=== PATIENT | female | born 1935 | race Caucasian/White ===

== ENCOUNTER 2017-01-04 14:16 | Inpatient (IN) | payer MEDICARE, BC ==
[~2017-01-04] VITALS: Ht 154.9 cm; Wt 54.7 kg
[~2017-01-04 14:16] MED LIST: ADVA100A INH; ALUM5LIQ PO; BISA10SU PR; CART120C2 PO; CENTTAB16 PO; COUM10TA PO; DIPH50TA PO; DOCU1CAP39 PO; EMBREL INJ; FLEX5TAB PO; FOLI1TAB PO; MAGN30S PO; METH2.5 PO; METO50TA PO; OMEG12002 PO; PERC5TAB12 PO; RAMI2.5C29 PO; RANI150T PO; SIMV20TA PO; TOLT1TAB PO; VITA500015 PO; WARF5TAB PO
[2017-01-23] MEDS ORDERED: METOPROLOL TARTRATE 25 MG TAB PO PRN (07:00)
[2017-01-23] MEDS: SODIUM CHLORID 0.9% 500 ML IV SCH ×2 (07:00→14:04)
[2017-01-23] MEDS: POVIDONE IODINE 7.5% SCRUB 118 ML BOTTLE TOP SCH ×2 (07:00→14:04)
[2017-01-23] MEDS ORDERED: VANCOMYCIN 1000 MG/NS 250 ML (for <70 kg) IV SCH ×2 (07:00)
[2017-01-23] MEDS ORDERED: DEXAMETHASONE SOD PHOS 4 MG/ML VIAL IV SCH (07:00)
[2017-01-23] MEDS ORDERED: INSULIN HUMAN REGULAR 1,000 UNITS/10 ML VIAL SQ PRN (07:00)
--- NOTE | 2017-01-23 07:01 | HHI.DCPOC ---
Discharge Care Plan Diagnosis: (1) Status post total knee replacement, right (2) Primary localized osteoarthrosis, lower leg Your Health Problems Are: Difficulty with ADL Goals to Promote Your Health * To prevent worsening of your condition and complications * To maintain your health at the optimal level Directions to Meet Your Goals Take your medications as prescribed Follow your dietary instruction Follow activity as directed Keep your appointments as scheduled Take your immunizations and boosters as scheduled If your symptoms worsen call your PCP, if no PCP go to Urgent Care Center or Emergency Room Smoking is Dangerous to Your Health. Avoid second hand smoke Call the 24-hour hour crisis hotline for domestic abuse at Calin Parker Jan 23, 2017 07:01
--- NOTE | 2017-01-23 07:01 | HHI.FF ---
Face to Face Verification Diagnosis: (1) Status post total knee replacement, right (2) Primary localized osteoarthrosis, lower leg Physical Therapy Gait training, Transfer training, bed to chair Knee: Total knee Right LE Weight Bearing: WB as tolerated Right LE Range of Motion: Active ROM Nursing Nursing: Cristina teaching, Dressing changes Dressing Changes: Daily dressing change I have seen patient Narcisa Graham on 01/23/17. My clinical findings support the need for the requested home health care services because: Limited ability to care for self High risk of falls I certify that my clinical findings support that this patient is homebound because: Post-op weakness Unsteady gait/balance Calin Parker Jan 23, 2017 07:01
[2017-01-23] MEDS ORDERED: CPMMACHINE (07:03)
[2017-01-23] MEDS ORDERED: COMMODE 3-IN-11 MIS (07:03)
[2017-01-23] MEDS ORDERED: WALKER WHEELS/F1 MIS (07:03)
[2017-01-23] MEDS ORDERED: DILT120C9 PO (07:14)
[2017-01-23] MEDS ORDERED: LEVO25TA4 PO (07:14)
[2017-01-23] MEDS ORDERED: COUM5TAB PO (07:14)
[2017-01-23] MEDS ORDERED: SIMV10TA PO (07:14)
[2017-01-23] MEDS ORDERED: OMEG1CAP50 PO (07:14)
[2017-01-23] MEDS ORDERED: ADVA100A INH (07:14)
[2017-01-23] MEDS ORDERED: TOLT1TAB16 PO (07:14)
[2017-01-23] MEDS ORDERED: METH2.5T PO (07:14)
[2017-01-23] MEDS ORDERED: FOLI5CAP PO (07:14)
[2017-01-23] MEDS ORDERED: VITA2000 PO (07:14)
[2017-01-23] MEDS ORDERED: METO-309 PO (07:14)
[2017-01-23 07:15] VITALS: BP 125/65; PULSE 60; RESP 16; TEMP 97.7; O2SAT 98
[2017-01-23] MEDS: LACTATED RINGER'S 1000 ML IV SCH ×2 (07:20→14:03)
[2017-01-23] MEDS ORDERED: ENOX40P SQ ×2 (07:28→12:15)
[2017-01-23] MEDS ORDERED: DEXAMETHASONE SOD PHOS 20 MG/5 ML VIAL ONE (07:42)
[2017-01-23] MEDS ORDERED: GENTAMICIN SULFATE 80 MG/2 ML VIAL ONE (08:17)
[2017-01-23] MEDS: ceFAZolin 2 GM PREMIX 50 ML IV SCH ×2 (08:50→14:04)
[2017-01-23] MEDS ORDERED: FAMOTIDINE 20 MG/2 ML VIAL ONE (09:17)
[2017-01-23] MEDS ORDERED: MIDAZOLAM HCL 5 MG/5 ML VIAL ONE (09:17)
[2017-01-23] MEDS: TRANEXAMIC ACID IV SCH ×2 (10:00→10:29)
[2017-01-23] MEDS: SODIUM CHLORIDE 0.9% IV SCH ×2 (10:00→10:29)
[2017-01-23] MEDS: ROPIVACAINE PERI-ARTICULAR INJECTION. PERIART SCH ×10 (10:00→10:57)
[2017-01-23] MEDS ORDERED: PROPOFOL 200 MG/20 ML AMP IV ONE (12:00)
[2017-01-23] MEDS ORDERED: ePHEDrine/NS 25 MG/5 ML SYR IV ONE (12:00)
[2017-01-23] MEDS ORDERED: MORPHINE SULFATE 4 MG/ML INJ IV PUSH PRN (12:15)
[2017-01-23] MEDS ORDERED: NALOXONE HCL 0.4 MG/ML AMP IV PRN (12:15)
[2017-01-23] MEDS ORDERED: diphenhydrAMINE HCL 50 MG/ML VIAL IV PRN (12:15)
[2017-01-23] MEDS ORDERED: ONDANSETRON HCL 4 MG/2 ML VIAL IVP PRN (12:15)
[2017-01-23] MEDS ORDERED: ACETAMINOPHEN/HYDROcodone 325 MG/5 MG TAB PO PRN (12:15)
[2017-01-23] MEDS ORDERED: BISACODYL 10 MG SUPP PR PRN (12:15)
[2017-01-23] MEDS ORDERED: TRANEXAMIC ACID IV SCH (12:15)
[2017-01-23] MEDS ORDERED: ZOLPIDEM TARTRATE 5 MG TAB PO PRN (12:15)
[2017-01-23] MEDS ORDERED: SODIUM CHLORIDE 0.9% IV SCH (12:15)
[2017-01-23] MEDS ORDERED: NORC5TAB PO (12:15)
[2017-01-23] MEDS ORDERED: MAGNESIUM HYDROXIDE SUSP 30 ML CUP PO PRN (12:15)
[2017-01-23] MEDS ORDERED: ENOXAPARIN SODIUM 40 MG/0.4 ML SYRINGE SQ SCH (12:15)
[2017-01-23] MEDS ORDERED: SODIUM CHLORIDE 0.9% FLUSH 5 ML FLUSH IVF PRN (12:15)
[2017-01-23] MEDS ORDERED: ALUMINUM/MAGNESIUM/SIMETH 30 ML CUP PO PRN (12:15)
[2017-01-23] MEDS ORDERED: BUPIVACAINE LIPOSOME PF 1.3% 20 ML VIAL ONE (12:17)
--- NOTE | 2017-01-23 12:17 | PD.OP ---
cc: Lan Mclaughlin MD Operative Report Date of Surgery: Jan 23, 2017 Preoperative Diagnosis: Right knee severe osteoarthritis Postoperative Diagnosis: Same Procedure: Right total knee arthroplasty Anesthesia: Adductor canal block and spinal Surgeon: Lan Mclaughlin Technical Writing Lead/Mgr(s): LIZETTE Del Angel The surgical procedure was assisted by my Advanced Registered Nurse Practitioner. My RENTAL CAR DELIVERER presence was necessary throughout this case for the manipulation and positioning of the surgical extremity. My RENTAL CAR DELIVERER was assisting me throughout the duration of this procedure. The skill set of an Advance Registered Nurse Practitioner was medically necessary to complete this procedure. During the surgical case, the county program technician was working at the back table and the Advance Registered Nurse Practitioner was directly assisting me. Operation and Findings: IMPLANTS: DePuy Attune: Patella: size 32. Femur, posterior stabilized size 4. Tibia, rotating platform size 3. Tibial insert, rotating platform, posterior stabilized size 5 mm thickness. ESTIMATED BLOOD LOSS: 100 cc TOURNIQUET TIME: 40 minutes at 250 mmHg pressure. JUSTIFICATION FOR PROCEDURE: The patient has end-stage osteoarthritis to the knee. There is an attached conservative measures pathway form in the chart that describes the nonoperative measures that were undertaken prior to consideration of surgical management. The patient understood the risks and benefits of surgical management. See my office notes for further details PROCEDURE: The patient was brought back to the operative theatre. Adequate anesthesia was obtained. The patient received intravenous vancomycin and Ancef. The lower extremity was prepped and draped in the usual sterile fashion.The leg was exsanguinated, the tourniquet was raised. A standard anterior incision was performed followed by medial parapatellar arthrotomy was performed. End-stage arthritis was identified. Osteotomy of the patella was performed. We drilled holes for the patella. We trialed the patella component. We placed an intramedullary guide into the distal femur. We ultimately resected 13 mm off of the distal femur in 5 degrees of valgus. The remnants of the ACL and PCL were resected. Osteotomy of the proximal tibia was performed, resecting 5 mm off of the medial side. This was done with 3 degrees of posterior slope using an extramedullary guide. The distal end of the guide was placed in the mid aspect of the ankle. The femur was sized, and four chamfer cuts were completed in 3 of external rotation. We then cut the central box in the distal femur to replace the PCL. We resected the remnants of the menisci and removed osteophytes off of the femur and tibia. We then trialed the knee. We punched the tibia for the keel, and then used standard technique to cement in components. Excess cement was removed. We trialed the knee again and the final polyethylene thickness was chosen to provide extension to 0 degrees, and flexion of 140 degrees to gravity. The ligaments were appropriately balanced. Lateral release was not necessary to obtain excellent patellofemoral tracking. The tourniquet was released and adequate hemostasis was obtained. An intra- articular injection of a ropivacaine cocktail was injected. The posterior knee was inspected for excess cement, which was removed. The final polyethylene was put into position after thorough irrigation. We then closed deep fascia with a #2 Stratafix followed by skin with 2-0 Vicryl followed by alex. Postop plan is to weight-bear as tolerated. DVT prophylaxis will be performed with JAXSON Suarez, early mobilization, and starting a Lovenox bridge of 40 mg subcutaneous daily. The patient will resume her oral Coumadin tonight. We have written a prescription of Lovenox as a bridge for the patient to be taken as an outpatient. We have ordered monitoring of her INR. When her INR is equal to or greater than 1.7 she will stop the Lovenox. Lan Mclaughlin MD Jan 23, 2017 12:17
[2017-01-23] MEDS ORDERED: *morphine SULFATE 8 MG/ML PERIprocedure ONLY ONE ×2 (12:25→12:37)
[2017-01-23] MEDS ORDERED: DO NOT ADM ANY ANTICOAGULANT DRUGS XX PRN (12:30)
[2017-01-23] MEDS ORDERED: Post-op Orders (for Pharmacy) MISC XX ONE (12:30)
[2017-01-23] MEDS: SODIUM CHLOR 0.9% 1000 ML INJ 1,000 ML IV SCH (13:00)
--- NOTE | 2017-01-23 13:21 | RADRPT ---
EXAM DATE/TIME: 01/23/2017 12:58 [facility] COMPARISON: CHEST PA & LAT, January 07, 2017, 11:38. INDICATIONS : Post-op right knee. MEDICAL HISTORY : None. SURGICAL HISTORY : None. ENCOUNTER: Initial ACUITY: 1 day PAIN SCORE: Non-responsive. LOCATION: Right knee. FINDINGS: The patient is post right knee arthroplasty. Orthopedic hardware is in excellent position. Alignment is good. CONCLUSION: Orthopedic hardware in excellent position. Calin Troy MD on January 23, 2017 at 13:19 Board Certified Radiologist. This report was verified electronically.
[2017-01-23 14:29] LABS: ANION GAP 9 MEQ/L (5-15); AST (GOT) 24 U/L (15-37); BICARBONATE 24.3 MEQ/L (21.0-32.0); BLOOD UREA NITROGEN 14 MG/DL (7-18); CHLORIDE 108 MEQ/L (98-107); GLOMERULAR FILTRATION RATE 68 ML/MIN (>89); POTASSIUM 3.6 MEQ/L (3.5-5.1); SODIUM (NA) 141 MEQ/L (136-145)
[2017-01-23 14:32] LABS: ALKALINE PHOSPHATASE 70 U/L (45-117); ALT (GPT) 24 U/L (10-53); TOTAL BILIRUBIN ADULT 0.3 MG/DL (0.2-1.0)
--- NOTE | 2017-01-23 14:43 | PD.CONS ---
[facility] Reason for Consult Medical management Primary Care Physician Jean-Paul Ross MD Diagnoses: History of Present Illness 81 yrs old female with PMH of Atrial fibrillation, Hypothyroidism and severe right Knee OA who despite medical management and intramuscular steroid injection continues to have severe right knee pain affecting her daily living of activity was taken to the OR and underwent Right total knee arthroplasty today 01/23/17. Patient was seen in PACU however was sedated. During her operation, she had runs of multiple PVCs Review of Systems Other 12 system reviewed and are negative except for the ones mentioned in history of present illness Past Family Social History Allergies: Coded Allergies: Contrast Media (Unverified Allergy, Severe, HIVES, ITCHING, 08/19/13) Iodine (Verified Allergy, Severe, 08/19/13) IV CONTRAST, HIVES, ITCHING Lortab (Verified Allergy, Intermediate, Rash, 08/20/13) Past Medical History Rheumatoid arthritis Osteoarthritis Atrial fibrillation Hypertension Hypothyroidism Sleep apnea COPD Past Surgical History Left total hip arthroplasty 08/19/13 Bilateral cataract surgery Denture Bilateral hand and feet surgery Reported Medications see EMR Family History Noncontributory Social History No report of tobacco, alcohol or illicit drug intake Physical Exam Vital Signs Vital Signs Date Time Temp Pulse Resp B/P Pulse Ox O2 Delivery O2 Flow Rate FiO2 01/23/17 13:30 64 16 114/57 99 Nasal Cannula 2 01/23/17 13:15 66 16 117/57 99 Nasal Cannula 2 01/23/17 13:00 64 16 111/62 99 Nasal Cannula 2 01/23/17 12:45 64 16 107/63 98 Nasal Cannula 2 01/23/17 12:30 66 16 92/47 98 Nasal Cannula 2 01/23/17 12:20 96.6 62 16 115/65 99 Nasal Cannula 2 01/23/17 07:15 97.7 60 16 125/65 98 Physical Exam GENERAL: This is a well-nourished, well-developed patient, in no apparent distress. SKIN: No rashes, ecchymoses or lesions. Cool and dry. HEAD: Atraumatic. Normocephalic. No temporal or scalp tenderness. EYES: Pupils equal round and reactive. Extraocular motions intact. No scleral icterus. No injection or drainage. ENT: Nose without bleeding, purulent drainage or septal hematoma. Throat without erythema, tonsillar hypertrophy or exudate. Uvula midline. Airway patent. NECK: Trachea midline. No JVD or lymphadenopathy. Supple, nontender, no meningeal signs. CARDIOVASCULAR: Regular rate and rhythm without murmurs, gallops, or rubs. RESPIRATORY: Clear to auscultation. Breath sounds equal bilaterally. No wheezes , rales, or rhonchi. GASTROINTESTINAL: Abdomen soft, non-tender, nondistended. No hepato-splenomegaly , or palpable masses. No guarding. MUSCULOSKELETAL: Extremities without clubbing, cyanosis, or edema. No joint tenderness, effusion, or edema noted. No calf tenderness. Negative Homans sign bilaterally. Right knee repair-neurovascular intact NEUROLOGICAL: Awake and alert. Cranial nerves II through XII intact. Motor and sensory grossly within normal limits. Five out of 5 muscle strength in all muscle groups. Normal speech. Laboratory Laboratory Tests Test 01/23/17 01/23/17 07:30 13:40 Prothrombin Time 11.0 Prothromb Time International 1.0 Ratio Blood Type A NEGATIVE Antibody Screen NEGATIVE Sodium Level 141 Potassium Level 3.6 Chloride Level 108 Carbon Dioxide Level 24.3 Anion Gap 9 Blood Urea Nitrogen 14 Creatinine 0.81 Estimat Glomerular Filtration 68 Rate Random Glucose 155 Calcium Level 7.9 Magnesium Level 2.0 Total Bilirubin 0.3 Aspartate Amino Transf 24 (AST/SGOT) Alanine Aminotransferase 24 (ALT/SGPT) Alkaline Phosphatase 70 Total Protein 6.5 Albumin 3.2 Result Diagram: 01/23/17 1340 Imaging Last Impressions Knee X-Ray 01/23/17 1202 Signed Impressions: Service Date/Time: Monday, January 23, 2017 12:58 - CONCLUSION: Orthopedic hardware in excellent position. Calin Troy MD Assessment and Plan Assessment and Plan 81 Year-old female with 1. Right knee osteoarthritis severe: Status post right total knee arthroplasty 01/23/17, management per orthopedic surgery. Continue current postop care. Coumadin for DVT prophylaxis. PT consult to treat and eval 2. Postoperative arrhythmias including PVCs: Stat CMP, mag ,phosphate, treat accordingly and continue telemetry monitoring 3. Atrial fibrillation, chronic-resume home beta nell and Cardizem 120 mg by mouth twice a day and Restart Coumadin. 4. Hypertension, benign: Resume outpatient oral antihypertensive medications 5. COPD: No exacerbation, resume Advair, bronchodilators as needed. 6. Rheumatoid arthritis-hold weekly methotrexate. 7. History sleep apnea-resume home CPAP machine. 8. Hypothyroidism:Resume Synthroid 9. DVT prophylaxis: Resume Coumadin Code Status Full code Discussed Condition With nurse Jomar Gibson MD Jan 23, 2017 14:43
[2017-01-23] MEDS ORDERED: RESP: ALBUTEROL 2.5 MG/IPRATROPIUM 0.5 MG NEB (PRN) NEB (14:45)
[2017-01-23 17:44] VITALS: BP 115/56; PULSE 74; RESP 17; TEMP 96.3; O2SAT 98
[2017-01-23] MEDS: WARFARIN SOD 5 MG TAB PO SCH (18:30)
[2017-01-23 20:31] VITALS: BP 120/61; PULSE 89; RESP 17; TEMP 96.4; O2SAT 94
[2017-01-23] MEDS: BUDESONIDE-FORMOTEROL 80/4.5 MCG INHALER INH SCH (21:00)
[2017-01-23] MEDS: SODIUM CHLORIDE 0.9% FLUSH 5 ML FLUSH IVF SCH (21:12)
[2017-01-24 00:30] VITALS: BP 117/59; PULSE 84; RESP 18; TEMP 96.7; O2SAT 93
[2017-01-24] MEDS: SODIUM CHLOR 0.9% 1000 ML INJ 1,000 ML IV SCH ×2 (02:00→10:15)
[2017-01-24 04:30] VITALS: BP 107/52; PULSE 68; RESP 18; TEMP 97.5; O2SAT 97
[2017-01-24] MEDS ORDERED: LEVOTHYROXINE SODIUM 25 MCG TAB PO SCH (06:00)
[2017-01-24 06:07] LABS: HEMATOCRIT 33.9 % (35.0-46.0); MEAN CELL VOLUME 95.4 FL (80.0-100.0); MEAN CORPUSCULAR HEMOGLOBIN 31.3 PG (27.0-34.0); MEAN CORPUSCULAR HGB CONC 32.8 % (32.0-36.0); PLATELET COUNT 198 TH/MM3 (150-450); RED BLOOD COUNT 3.55 MIL/MM3 (4.00-5.30); RED CELL DISTRIBUTION WIDTH 15.1 % (11.6-17.2); REVIEW FLAG FINAL; WHITE BLOOD COUNT 13.8 TH/MM3 (4.0-11.0)
[2017-01-24 06:17] LABS: PROTHROMBIN TIME - PATIENT 11.1 SEC (9.8-11.6)
[2017-01-24] MEDS ORDERED: DEXAMETHASONE SOD PHOS 20 MG/5 ML VIAL IV ONE (07:45)
[2017-01-24 08:00] VITALS: BP 105/64; PULSE 71; RESP 16; TEMP 95.5; O2SAT 97
[2017-01-24] MEDS: BUDESONIDE-FORMOTEROL 80/4.5 MCG INHALER INH SCH (09:00)
[2017-01-24] MEDS ORDERED: METOPROLOL TARTRATE 50 MG TAB PO SCH (09:00)
[2017-01-24] MEDS ORDERED: PANTOPRAZOLE SOD 20 MG DELAYED RELEASE TAB PO SCH (09:00)
[2017-01-24] MEDS ORDERED: DILTIAZEM-CD 240 MG CAP ER PO SCH (09:00)
[2017-01-24] MEDS ORDERED: TOLTERODINE TARTRATE 4 MG CAP LA PO SCH (09:00)
[2017-01-24 09:02] VITALS: O2SAT 99
--- NOTE | 2017-01-24 09:22 | HHI.PR ---
Subjective Remarks Patient seen and examined Stable and no acute event overnight Afebrile and family by the bedside Objective Vitals Vital Signs Date Time Temp Pulse Resp B/P Pulse Ox O2 Delivery O2 Flow Rate FiO2 01/24/17 09:02 99 Nasal Cannula 2.00 01/24/17 04:30 97.5 68 18 107/52 97 01/24/17 00:30 96.7 84 18 117/59 93 01/23/17 20:31 96.4 89 17 120/61 94 01/23/17 17:44 96.3 74 17 115/56 98 01/23/17 17:00 70 16 111/57 98 Nasal Cannula 2 01/23/17 16:00 72 16 103/58 98 Nasal Cannula 2 01/23/17 15:00 74 16 111/63 98 Nasal Cannula 2 01/23/17 14:00 74 16 122/65 99 Nasal Cannula 2 01/23/17 13:30 64 16 114/57 99 Nasal Cannula 2 01/23/17 13:15 66 16 117/57 99 Nasal Cannula 2 01/23/17 13:00 64 16 111/62 99 Nasal Cannula 2 01/23/17 12:45 64 16 107/63 98 Nasal Cannula 2 01/23/17 12:30 66 16 92/47 98 Nasal Cannula 2 01/23/17 12:20 96.6 62 16 115/65 99 Nasal Cannula 2 I/O 01/23/17 01/23/17 01/23/17 01/24/17 01/24/17 01/24/17 07:00 15:00 23:00 07:00 15:00 23:00 Intake Total 300 ml 240 ml 120 ml Output Total 75 ml 275 ml 200 ml Balance 225 ml -35 ml -80 ml Intake Oral 240 ml 120 ml IV Total 300 ml Output Urine Total 75 ml 275 ml 200 ml # Bowel Movements 0 0 Result Diagram: 01/24/17 0530 01/23/17 1340 Imaging Last Impressions Knee X-Ray 01/23/17 1202 Signed Impressions: Service Date/Time: Monday, January 23, 2017 12:58 - CONCLUSION: Orthopedic hardware in excellent position. Calin Troy MD Objective Remarks GENERAL: NAD SKIN: Warm and dry. HEAD: Normocephalic. EYES: No scleral icterus. No injection or drainage. NECK: Supple, trachea midline. No JVD or lymphadenopathy. CARDIOVASCULAR: Regular rate and rhythm without murmurs, gallops, or rubs. RESPIRATORY: Breath sounds equal bilaterally. No accessory muscle use. GASTROINTESTINAL: Abdomen soft, non-tender, nondistended. MUSCULOSKELETAL: No cyanosis, or edema. Right knee repair-neurovascular intact BACK: Nontender without obvious deformity. No CVA tenderness. A/P Assessment and Plan 81 Year-old female with 1. Right knee osteoarthritis severe: Status post right total knee arthroplasty 01/23/17, management per orthopedic surgery. Continue current postop care. Coumadin for DVT prophylaxis. PT consult to treat and eval 2. Postoperative arrhythmias including PVCs: Resolved 3. Atrial fibrillation, chronic-resume home beta nell and Cardizem 120 mg by mouth twice a day and Coumadin. 4. Hypertension, benign: continue outpatient oral antihypertensive medications 5. COPD: No exacerbation, on Advair, bronchodilators as needed. 6. Rheumatoid arthritis-hold weekly methotrexate. 7. History sleep apnea-continue home CPAP machine. 8. Hypothyroidism:on Synthroid 9. DVT prophylaxis: on Coumadin 10. Leukocytosis: Check UA and treat accordingly Jomar Gibson MD Jan 24, 2017 09:22
[2017-01-24] MEDS: ACETAMINOPHEN/HYDROcodone 325 MG/5 MG TAB PO PRN ×4 (09:23→17:11)
[2017-01-24] MEDS: SODIUM CHLORIDE 0.9% FLUSH 5 ML FLUSH IVF SCH (09:24)
[2017-01-24 12:00] VITALS: BP 122/56; PULSE 63; RESP 20; TEMP 95.6; O2SAT 97
[2017-01-24] MEDS ORDERED: ENOXAPARIN SODIUM 40 MG/0.4 ML SYRINGE SQ SCH (12:00)
--- NOTE | 2017-01-24 12:45 | PD.ORT.PN ---
Subjective Post Op Day #: 1 Subjective Remarks The patient is OOB in chair with minimal pain. Patient needs to void and then is requesting to go home today with home health. Objective Vitals Vital Signs Date Time Temp Pulse Resp B/P Pulse Ox O2 Delivery O2 Flow Rate FiO2 01/24/17 09:02 99 Nasal Cannula 2.00 01/24/17 08:00 95.5 71 16 105/64 97 01/24/17 04:30 97.5 68 18 107/52 97 01/24/17 00:30 96.7 84 18 117/59 93 01/23/17 20:31 96.4 89 17 120/61 94 01/23/17 17:44 96.3 74 17 115/56 98 01/23/17 17:00 70 16 111/57 98 Nasal Cannula 2 01/23/17 16:00 72 16 103/58 98 Nasal Cannula 2 01/23/17 15:00 74 16 111/63 98 Nasal Cannula 2 01/23/17 14:00 74 16 122/65 99 Nasal Cannula 2 01/23/17 13:30 64 16 114/57 99 Nasal Cannula 2 01/23/17 13:15 66 16 117/57 99 Nasal Cannula 2 01/23/17 13:00 64 16 111/62 99 Nasal Cannula 2 01/23/17 12:45 64 16 107/63 98 Nasal Cannula 2 I/O 01/23/17 01/23/17 01/23/17 01/24/17 01/24/17 01/24/17 07:00 15:00 23:00 07:00 15:00 23:00 Intake Total 300 ml 240 ml 120 ml Output Total 75 ml 275 ml 200 ml Balance 225 ml -35 ml -80 ml Intake Oral 240 ml 120 ml IV Total 300 ml Output Urine Total 75 ml 275 ml 200 ml # Bowel Movements 0 0 Result Diagram: 01/24/17 0530 01/23/17 1340 Other Results Laboratory Tests Test 01/24/17 05:30 Prothrombin Time 11.1 SEC (9.8-11.6) Prothromb Time International 1.0 RATIO Ratio Procedures Right TKA Objective Remarks The patient's dressing was changed with scant serosanguineous drainage. Incision is well approximated with surgical clips intact. No redness or s/s of infection. Mild ecchymosis to knee. EHL/TA/G intact. Calf is soft and nontender. + SILT. 2+ pedal pulse. Minimal swelling. Assessment & Plan Ortho Post Op Day #: 1 Problem List: Assessment and Plan POD #1: Right TKA 1. WBAT RLE 2. Lovenox bridge with Coumadin until INR is 1.7 then discontinue Lovenox. Continue with INR draws until therapeutic. 3. Ice to the right knee PRN 4. Stable for discharge home with home health today. Calin Parker Jan 24, 2017 12:45
[2017-01-24 17:00] VITALS: BP 104/52; PULSE 71; RESP 20; TEMP 96.1; O2SAT 97
[2017-01-24] MEDS: WARFARIN SOD 5 MG TAB PO SCH (17:11)
--- NOTE | 2017-01-24 20:03 | EKG ---
Date Performed: 01/23/2017 Time Performed: 13:29:20 PTAGE: 81 years EKG: Sinus rhythm WITH FREQUENT VENTRICULAR PREMATURE COMPLEXES NONSPECIFIC ST & T-WAVE ABNORMALITY. When compared to previous tracing, sinus rate is slower. Frequent premature ventricular contractions are new. ABNORMAL ECG PREVIOUS TRACING : 05/20/2008 00.43 DOCTOR: David Whatley Interpretating Date/Time 01/24/2017 20:03:40
[2017-01-24] MEDS ORDERED: MULTIVITAMINS/MINERALS THERAPEUTIC TAB PO SCH (21:00)
[2017-01-24] MEDS ORDERED: DOCUSATE SODIUM 100 MG CAP PO SCH (21:00)
--- NOTE | 2017-01-27 20:38 | HHI.DS ---
Discharge Summary Admission Date Jan 23, 2017 at 06:11 Discharge Date: Jan 24, 2017 Admitting Diagnosis Primary localized OA, lower leg Status post total knee replacement, right Diagnosis: (1) Primary localized osteoarthrosis, lower leg Diagnosis: Principal (2) Status post total knee replacement, right Diagnosis: Principal Procedures Right TKA Brief History This is a 81 year old female patient with severe OA of the right knee CBC/BMP: 01/24/17 0530 01/23/17 1340 PE at Discharge The patient's dressing was changed with scant serosanguineous drainage. Incision is well approximated with surgical clips intact. No redness or s/s of infection. Mild ecchymosis to knee. EHL/TA/G intact. Calf is soft and nontender. + SILT. 2+ pedal pulse. Minimal swelling. Hospital Course The patient was admitted for severe OA of the right knee to have a right TKA. The patient's surgery went well without complication. The patient was placed back Coumadin and bridged with Lovenox for DVT prophylaxis until INR is therapeutic at 1.7. INR lab work is ordered post op. The patient was on a regular diet. The patient is WBAT. The patient was discharged home with home health and will f/u with Dr. Mclaughlin in 1-2 weeks as scheduled. Pt Condition on Discharge: Stable Discharge Disposition: Disch w/ Home Health Serv Discharge Instructions Diet Instructions: Diabetic Diet Activities You Can Perform: Weight Bearing as Amee Activities to Avoid: Strenuous Activity Follow up Referrals: Orthopedics with Lan Mclaughlin MD New Medications: Commode 3-in-1 (Commode 3-in-1) 1 Mis Mis 1 EA .ROUTE DIRECTED #1 Ref 0 EA CPM-Continuous Passive Motion Machine (CPM-Continuous Passive Motion Machine) 1 Ea Device 1 EA .ROUTE DIRECTED #1 Ref 0 EA Enoxaparin Inj (Lovenox Inj) 40 Mg/0.4 Ml Syr 40 MG SQ DAILY Stopped the Lovenox injections when the INR is equal to or greater than 1.7 Blood Clot Prevention #7 Ref 0 SYRINGE Hydrocodone-Acetaminophen ([place]) 5-325 mg Tab 1-2 TAB PO Q4H PRN PAIN #60 Ref 0 TAB Walker with Front Wheels (Walker with Front Wheels) 1 Mis Mis 1 EA .ROUTE DIRECTED #1 Ref 0 EA Continued Medications: Cholecalciferol (Vitamin D3) 2,000 Unit Cap 2000 UNITS PO DAILY Nutritional Supplement #1 Ref 0 BOTTLE Diltiazem ER 12 HR (Diltiazem ER 12 HR) 120 Mg Caper 120 MG PO BID #60 Ref 0 CAP Fluticasone-Salmeterol Inh (Advair Diskus Inh) 100-50 Mcg/Blist Aer 1 PUFF INH BID Rinse mouth after use. Asthma Management #1 Ref 0 INHALER Folic Acid (Folic Acid) 5 Mg Cap 5 MG PO DAILY Nutritional Supplement Ref 0 CAP Levothyroxine (Levothyroxine) 25 Mcg Tab 25 MCG PO DAILY Thyroid #30 Ref 0 TAB Metoprolol Tartrate (Lopressor) 50 Mg Tab 50 MG PO DAILY #30 Ref 0 TAB Simvastatin (Simvastatin) 10 Mg Tab 10 MG PO DAILY Cholesterol Management #30 Ref 0 TAB Tolterodine (Tolterodine) 2 Mg Tab 2 MG PO BID Urinary Symptom Managemen #60 Ref 0 TAB Warfarin (Coumadin) 5 Mg Tab 5 MG PO DAILY Blood Clot Prevention #30 Ref 0 TAB Discontinued Medications: Methotrexate (Methotrexate) 2.5 Mg Tab 2.5 MG PO Q7D Ref 0 TAB Methotrexate (Methotrexate) 2.5 Mg Tab 7 PO Q7D Ref 0 TAB [place]-3 Fatty Acids ([place] 3 500 500 mg) 1 Cap Cap 1 CAP PO DAILY Calin Parker Jan 27, 2017 20:38
== END 2017-01-24 19:05 | disposition home health service (06) | DRG 470 ==
LOC: HSDI 01-23 06:11 → N06A 01-23 17:35
PROVIDERS: ADMIT Orthopaedic Surgery; ATTEND Orthopaedic Surgery
PROC: 3E0T3CZ (ICD-10-PCS; 2017-01-23)
PROC: 0SRC0J9 Replacement of Right Knee Joint with Synthetic Substitute, Cemented, Open Approach (ICD-10-PCS; principal; 2017-01-23 10:04)
DX: M17.11 Unilateral primary osteoarthritis, right knee (principal); M06.9 Rheumatoid arthritis, unspecified; I49.3 Ventricular premature depolarization; I48.2 Chronic atrial fibrillation; J44.9 Chronic obstructive pulmonary disease, unspecified; I10 Essential (primary) hypertension; E03.9 Hypothyroidism, unspecified; G47.30 Sleep apnea, unspecified; Z79.01 Long term (current) use of anticoagulants
CPT/HCPCS: 73560; 80053; 83735; 85027; 85610; 86850; 86900; 86901; 93005; 94150; C1776; C9290; J0171; J0690; J0735; J1100; J1580; J1650; J1885; J2250; J2270; J2795; J3370; J7030; J7050; J7120; L1830

== ENCOUNTER → 2017-01-07 | Outpatient (CLI) | payer MEDICARE, BC ==
[~2017-01-07] MED LIST changes: +COMMODE 3-IN-11 MIS; +COUM5TAB PO; +CPMMACHINE; +DILT120C9 PO; +ENOX40P SQ; +FOLI5CAP PO; +LEVO25TA4 PO; +METH2.5T PO; +METO-309 PO; +NORC5TAB PO; +OMEG1CAP50 PO; +SIMV10TA PO; +TOLT1TAB16 PO; +VITA2000 PO; +WALKER WHEELS/F1 MIS
[2017-01-07 10:10] LABS: AUTOMATED NEUTROPHIL # 2.1 TH/MM3 (1.8-7.7); BASOPHIL # 0.1 TH/MM3 (0-0.2); BASOPHIL % 1.3 % (0.0-2.0); EOSINOPHIL # 0.2 TH/MM3 (0-0.4); EOSINOPHIL % 3.1 % (0.0-4.0); HEMATOCRIT 38.4 % (35.0-46.0); HEMO FLAGS DIFF FINAL; LYMPH % 43.1 % (9.0-44.0); LYMPHOCYTE # 2.4 TH/MM3 (1.0-4.8); MEAN CELL VOLUME 95.3 FL (80.0-100.0); MEAN CORPUSCULAR HEMOGLOBIN 31.9 PG (27.0-34.0); MEAN CORPUSCULAR HGB CONC 33.5 % (32.0-36.0); MONO % 15.8 % (0.0-8.0); NEUT % 36.7 % (16.0-70.0); PLATELET COUNT 283 TH/MM3 (150-450); RED BLOOD COUNT 4.03 MIL/MM3 (4.00-5.30); RED CELL DISTRIBUTION WIDTH 14.8 % (11.6-17.2); WHITE BLOOD COUNT 5.6 TH/MM3 (4.0-11.0)
[2017-01-07 10:19] LABS: APTT (PATIENT) 30.6 SEC (24.3-30.1); INTERNATIONAL NORMALIZED RATIO 2.1 RATIO; PROTHROMBIN TIME - PATIENT 24.3 SEC (9.8-11.6)
[2017-01-07 10:34] LABS: WESTERGREN SEDIMENTATION RATE 19 mm/hr (0-30)
[2017-01-07 10:45] LABS: ALKALINE PHOSPHATASE 81 U/L (45-117); ALT (GPT) 23 U/L (10-53); ANION GAP 8 MEQ/L (5-15); AST (GOT) 28 U/L (15-37); BICARBONATE 27.3 MEQ/L (21.0-32.0); BLOOD UREA NITROGEN 10 MG/DL (7-18); CHLORIDE 105 MEQ/L (98-107); GLOMERULAR FILTRATION RATE 55 ML/MIN (>89); GLUCOSE,FASTING 81 MG/DL (74-99); SODIUM (NA) 140 MEQ/L (136-145); TOTAL BILIRUBIN ADULT 0.4 MG/DL (0.2-1.0)
[2017-01-07 10:48] LABS: POTASSIUM 4.2 MEQ/L (3.5-5.1)
[2017-01-07 10:55] LABS: BACTERIA, URINE OCC /hpf; BLOOD, URINE NEG (NEG); COMMENT (UR) CULT NOT INDICATED; CULTURE IF INDICATED CULT NOT INDICATED; GLUCOSE,URINE NEG (NEG); HYALINE CAST, URINE 1 /lpf (RARE); KETONE, URINE NEG (NEG); MUCUS URINE FEW /lpf (OCC); NITRITE,URINE NEG (NEG); PH, URINE 6.5 (5.0-8.5); SQUAMOUS EPITHELIAL CELL URINE <1 /hpf (0-5); URINE COLOR YELLOW (YELLW/STRAW)
--- NOTE | 2017-01-07 12:33 | RADRPT ---
EXAM DATE/TIME: 01/07/2017 11:38 [facility] COMPARISON: CHEST PA & LAT, August 07, 2013, 11:38. INDICATIONS : Evaluate for pneumonia, pneumothorax and communicable diseases. Pre-op knee surgery MEDICAL HISTORY : Chronic obstructive pulmonary disease. SURGICAL HISTORY : None. ENCOUNTER: Initial ACUITY: 1 day PAIN SCORE: 0/10 LOCATION: chest FINDINGS: PA and lateral views of the chest demonstrate a normal-sized cardiac silhouette. There is no effusion , consolidation, or pneumothorax. The bones and soft tissues demonstrate no acute abnormality. Lung s taple line is again visualized in the right lung. There are degenerative changes of the thoracic spin e. CONCLUSION: Stable chest x-ray. No acute cardiopulmonary abnormality is identified. Sukumar Roe MD on January 07, 2017 at 12:31 Board Certified Radiologist. This report was verified electronically.
== END ==
LOC: CPRE 08:57
PROVIDERS: ATTEND Orthopaedic Surgery
DX: M17.11 Unilateral primary osteoarthritis, right knee (principal); M25.50 Pain in unspecified joint; M79.609 Pain in unspecified limb; Z01.818 Encounter for other preprocedural examination; Z01.812 Encounter for preprocedural laboratory examination; Z96.60 Presence of unspecified orthopedic joint implant
CPT/HCPCS: 36415; 71020; 80053; 81001; 85025; 85610; 85652; 85730